=== PATIENT | male | born 1995 | race Caucasian/White ===

== ENCOUNTER → 2024-03-14 | Outpatient (CLI) | payer MEDICAID, SELFPAY ==
[2024-03-14 13:09] LABS: Absolute Lymphocyte Count 2.58 X10^3/uL (0.83-4.51); Absolute Neutrophil Count 7.8 X10^3/uL (2.0-7.7); Basophil# 0.04 X10^3/uL; Basophil% 0.4 % (0-1); Eosinophil# 0.07 X10^3/uL; Eosinophils% 0.6 % (0-5); Hematocrit 42.7 % (40-54); Hemoglobin 14.2 g/dL (13.0-16.5); Lymphocyte # 2.58 X10^3/ul (0.83-4.51); Lymphocyte % 23.3 % (19-41); Mean Corp Hgb Conc 33.3 g/dL (32-36); Mean Corpuscular Hgb 28.1 pg (27.0-32.0); Mean Corpuscular Volume 84.4 fL (80-94); Mean Platelet Vol. 10.3 fl (6.2-12.0); Monocyte# 0.47 X10^3/uL; Monocyte% 4.2 % (0-10); NRBC Flagged by Analyzer 0 % (0-5); Neutrophil # 7.81 X10^3/uL (2.7-7.7); Neutrophil % 70.4 % (47-70); Platelet Count 285 K/mm3 (150-450); RBC Distribution Width CV 13.1 % (11.6-14.6); Red Blood Count 5.06 M/mm3 (4.6-6.2); White Blood Count 11.1 K/mm3 (4.4-11.0)
[2024-03-14 13:14] LABS: Hemoglobin A1c 5.6 % (3.8-5.6)
[2024-03-14 13:23] LABS: ALB/GLOB Ratio 0.9 RATIO (0.9-2.4); AST(SGOT) 16 U/L (15-37); Alanine Aminotransfer ALT/SGPT 40 U/L (16-61); Albumin, Serum 3.6 g/dL (3.2-5.0); Alkaline Phosphatase 110 U/L (45-117); Anion Gap 6 (5-15); BUN 14 mg/dL (7-18); BUN/Creat Ratio 13.3 RATIO (10-20); Calcium,Total 8.9 mg/dL (8.5-10.1); Chloride 105 mmol/L (98-107); Cholesterol 211 mg/dL (200); Creatinine, Serum 1.05 mg/dL (0.70-1.30); EST Glomerular Filtration Rate 89 mL/min (>60); Est Glom Filt Rate - Afr Amer 108 mL/min (>60); Globulin 4.2 g/dL (2.2-4.2); Glucose 124 mg/dL (74-106); High Density Lipoprotein 38 mg/dL; Potassium 3.6 mmol/L (3.5-5.1); Protein, Total 7.8 g/dL (6.4-8.2); Sodium Level 138 mmol/L (136-145); Triglycerides 159 mg/dL; Very Low Density Lipoprotein 32 mg/dL (5-40)
== END | disposition home or self-care (01) ==
LOC: VSLAB 12:39
PROVIDERS: PCP Nurse Practitioner Family; Visit Provider Nurse Practitioner Family
DX: E66.9 Obesity, unspecified (principal)
CPT/HCPCS: 36415; 80053; 80061; 83036; 84443; 85025

== ENCOUNTER → 2024-11-07 | Outpatient (CLI) | payer MEDICAID, SELFPAY ==
[2024-11-07 16:47] LABS: Amphetamine Urine NEGATIVE (<1000 ng/mL); Barbiturate Urine NEGATIVE (< 200 ng/mL); Benzodiazepine Urine NEGATIVE (< 200 ng/mL); Buprenorphine Urine NEGATIVE (< 200 ng/mL); Cocaine Urine NEGATIVE (< 300 ng/mL); Fentanyl, Urine NEGATIVE; Methadone Urine NEGATIVE (< 300 ng/mL); Opiates Urine NEGATIVE (< 300 ng/mL); Oxycodone, Urine NEGATIVE (< 100 ng/mL); PCP Urine NEGATIVE (< 25 ng/mL); THC Urine NEGATIVE (< 50 ng/mL)
== END | disposition home or self-care (01) ==
LOC: VSLAB 14:33
PROVIDERS: PCP Nurse Practitioner Family
DX: Z02.89 Encounter for other administrative examinations (principal)
CPT/HCPCS: 80307

== ENCOUNTER 2024-12-08 05:38 | Emergency (ER) | payer MEDICAID, SELFPAY ==
[2024-12-08 05:41] VITALS: BP 156/122; PULSE 106; RESP 18; TEMP 35.9; O2SAT 97; BMI 62.6
--- NOTE | 2024-12-08 05:49 | CT_ITS ---
PROCEDURE: ABDOMEN/PELVIS W IV CONT ONLY 12/08/2024 REASON FOR EXAM: LEFT SIDE PAIN TECHNIQUE: ABDOMEN/PELVIS W IV CONT ONLY Coronal and Sagittal reconstruction series were provided. CONTRAST: Isovue 370 VOLUME: 97 mL One or more dose reduction techniques were used (e.g., Automated exposure control, adjustment of the mA and/or kV according to patient size, use of iterative reconstruction technique. RADIATION DOSE SUMMARY: CTDlvol: 35.53+ 34.45 mGy DLP: 1989.03 mGycm COMPARISON: None. FINDINGS: The peripheral soft tissues are unremarkable. The lung bases are clear. No acute osseous abnormalities. The abdominal aorta is normal in caliber. No suspicious lymphadenopathy. The liver, gallbladder, pancreas, spleen, adrenals are unremarkable. Symmetric enhancement of the bilateral kidneys. No hydroureteronephrosis. The urinary bladder is unremarkable. The prostate is unremarkable. Normal caliber large and small bowel. CT/Abdomen/Pelvis W IV Cont ONLY IMPRESSION: No acute abnormalities of the abdomen or pelvis. Reading Location: [id number]
--- NOTE | 2024-12-08 05:52 | ED.VIS.GI ---
HPI <Dr. José Hernandez DO - Last Filed: 12/09/24 15:16> HPI - GI History of Present Illness Chief Complaint: Diarrhea Informant: patient Narrative Narrative: Presents for recurrent diarrhea over the last 4 to 5 days. Started 3 weeks ago. It was proved however come back. He at least 10 episodes a day had 10 overnight. Nonbloody. Nausea without vomiting. Last couple days left abdominal cramping discomfort since 2 AM it has been persistent. No abdominal surgeries. No recent antibiotics. Had some chills. No urinary changes, no dysuria. He did go to [place], no swimming lakes or streams. Denies any raw foods. Denies cough. No allergies. Denies any family history of Crohn's or ulcerative colitis. Prior similar symptoms: No PFSH <Dr. José Hernandez DO - Last Filed: 12/09/24 15:16> PFSH Home Medications ?Medication ?Instructions ?Recorded ?Last Taken ?Type cholecalciferol (vitamin D3) 50 2,000 unit PO DAILY 12/08/24 Unknown History mcg (2,000 unit) capsule (Vitamin D3) ferrous sulfate 325 mg (65 mg 325 mg PO DAILY 12/08/24 Unknown History iron) tablet,delayed release folic acid 400 mcg tablet 0.4 mg PO DAILY 12/08/24 Unknown History hyoscyamine sulfate 0.125 mg 0.125 mg sublingual Q8H PRN 12/08/24 Unknown Rx sublingual tablet (Levsin/SL) abdominal discomfort #10 tabs loperamide 2 mg capsule 2 mg PO PRN PRN loose stool 12/08/24 Unknown History ondansetron 4 mg disintegrating 4 mg PO Q8H PRN PRN Nausea #10 tabs 12/08/24 Unknown Rx tablet testosterone cypionate 200 mg/mL 60 mg IM 12/08/24 Unknown History intramuscular oil trazodone 50 mg tablet 50 mg PO QHS PRN sleep 12/08/24 Unknown History Allergy/AdvReac Type Severity Reaction Status Date / Time No Known Allergies Allergy Verified 12/08/24 05:39 Surgical History (Updated 12/08/24 @ 06:05 by Fabiola Pearce) H/O removal of cyst Social History Smoking Status: Current some day smoker tobacco type: cigars ROS <Dr. José Hernandez, DO - Last Filed: 12/09/24 15:16> ROS ED Constitutional Constitutional ED: Reports chills; Denies fever(s) or sweats ENT ENT ED: Denies sore throat Cardiovascular Cardiovascular: Denies chest pain, leg edema, palpitations or racing heartbeat Respiratory/Chest Respiratory/Chest: Denies cough, dyspnea or dyspnea on exertion Gastrointestinal Gastrointestinal: Reports abdominal pain, diarrhea and nausea; Denies vomiting Genitourinary Genitourinary ED: Denies dysuria, hematuria or urinary frequency Musculoskeletal Musculoskeletal: Denies back pain, extremity pain or neck pain Integumentary Denies rash or wounds Neurologic Neurologic: Denies headache(s), paresthesias or weakness EXAM <Dr. José Hernandez, DO - Last Filed: 12/09/24 15:16> Physical Exam Const Vital Signs: 12/08/24 05:41 12/08/24 07:16 12/08/24 08:00 Temperature 96.7 F L 98.6 F 98.6 F Temperature Source Temporal Oral Oral Pulse Rate 106 H 108 H 95 Respiratory Rate 18 18 18 Blood Pressure 156/122 H 145/84 H 160/71 H Blood Pressure Mean 133 104 100 Pulse Ox 97 97 98 Oxygen Delivery Method Room Air Room Air Room Air Positive well nourished and well developed Constitutional Narrative: Nontoxic General Appearance ED: well developed and NAD HEENT HEENT Narrative: Mild dry mucosal membranes. normocephalic and atraumatic Eyes General Eye ED: Yes normal appearance of both eyes Neck full ROM Chest Wall Chest: Negative for tenderness Resp normal respiratory effort and normal air movement Effort and Inspection: symmetric chest movement; Negative for respiratory distress Cardio regular rhythm and no murmurs Rate: tachycardic Peripheral Pulses: pulses 2+ throughout GI normal to inspection, nondistended, normoactive bowel sounds GI Narrative: Mild tenderness left side upper abdomen. Negative Bradford's McBurney's tenderness. No guarding or rebound. Palpation: Negative for guarding or rebound tenderness present Extremity normal to inspection General Extremety ED: Negative for edema or tenderness General Extremity: Negative for edema Neuro oriented x3 and no sensory deficits noted Sensorium / Orientation: awake and alert Skin no rashes or lesions noted and no wounds <Dr. Eric Alfonso, DO - Last Filed: 12/08/24 08:50> Physical Exam Const Vital Signs: 12/08/24 05:41 12/08/24 07:16 12/08/24 08:00 Temperature 96.7 F L 98.6 F 98.6 F Temperature Source Temporal Oral Oral Pulse Rate 106 H 108 H 95 Respiratory Rate 18 18 18 Blood Pressure 156/122 H 145/84 H 160/71 H Blood Pressure Mean 133 104 100 Pulse Ox 97 97 98 Oxygen Delivery Method Room Air Room Air Room Air MDM <Dr. José Hernandez, DO - Last Filed: 12/09/24 15:16> MDM MDM Narrative Medical decision making narrative: Interventions / MDM: Differential diagnosis: Diarrhea, abdominal cramping, pancreatitis Diagnosis considered but do not suspect: N/A My EKG interpretation: N/A Imaging independently reviewed and interpreted by myself: CT abdomen pelvis IV contrast: External documents reviewed: N/A Test considered but not ordered:N/A ED course: Nontoxic. Slight tachycardia on arrival mild dry mucous membranes. IV established for abdominal labs. Will check an order for stool studies. CT abdomen pelvis due to left-sided abdominal pain. 0645: Labs white count 14. Normal creatinine 0.79 potassium 3.6. Lipase returned elevated at 260. Liver enzymes are normal. He denies any alcohol history. Clinically feeling better at this time. Pancreatitis likely causing his pain for the last couple days. Awaiting CT scan results. Awaiting stool collection. 0705: Stools were collected there is nonbloody. Discussed with patient may not get back right away. He has no C. difficile risk factors. Disposition be made after CT scan results. Re-evaluation: stable Disposition discussed with patient/family/significant other: Patient Case discussed with consulting clinician: N/A This note was generated with [employer] dictation software. It may contain incorrect words, spelling, and punctuation that were not noted in checking the note before signing. Lab Data Attestation: I reviewed the patient's lab results. Labs: Laboratory Results - last 24 hr 12/08/24 06:09 WBC 14.0 H RBC 4.86 Hgb 13.9 Hct 40.9 MCV 84.2 MCH 28.6 MCHC 34.0 RDW Std Deviation 38.3 RDW Coeff of Bebe 12.6 Plt Count 239 MPV 10.4 Immature Gran % (Auto) 0.400 Neut % (Auto) 80.1 H Lymph % (Auto) 11.4 L Hart % (Auto) 5.3 Eos % (Auto) 2.6 Baso % (Auto) 0.2 Absolute Neuts (auto) 11.2 H Absolute Lymphs (auto) 1.60 Nucleated RBC % 0 Sodium 136 Potassium 3.6 Chloride 106 Carbon Dioxide 17.4 L Anion Gap 13 BUN 9 Creatinine 0.79 Estim Creat Clear Calc 240.11 Est GFR (MDRD) Non-Af 123 BUN/Creatinine Ratio 11.0 Glucose 135 H Calcium 8.8 Total Bilirubin 0.41 AST 16 ALT 22 Alkaline Phosphatase 100 Total Protein 7.0 Albumin 3.7 Globulin 3.3 Albumin/Globulin Ratio 1.1 Lipase 260 H Radiography Diagnostic Testing: Clinical Impression(s) from Imaging Studies Abdomen/Pelvis CT 12/08/24 05:49 IMPRESSION: No acute abnormalities of the abdomen or pelvis. Reading Location: [id number] <Dr. Eric Alfonso, DO - Last Filed: 12/08/24 08:50> [facility] Lab Data Labs: Laboratory Results - last 24 hr 12/08/24 06:09 WBC 14.0 H RBC 4.86 Hgb 13.9 Hct 40.9 MCV 84.2 MCH 28.6 MCHC 34.0 RDW Std Deviation 38.3 RDW Coeff of Bebe 12.6 Plt Count 239 MPV 10.4 Immature Gran % (Auto) 0.400 Neut % (Auto) 80.1 H Lymph % (Auto) 11.4 L Hart % (Auto) 5.3 Eos % (Auto) 2.6 Baso % (Auto) 0.2 Absolute Neuts (auto) 11.2 H Absolute Lymphs (auto) 1.60 Nucleated RBC % 0 Sodium 136 Potassium 3.6 Chloride 106 Carbon Dioxide 17.4 L Anion Gap 13 BUN 9 Creatinine 0.79 Estim Creat Clear Calc 240.11 Est GFR (MDRD) Non-Af 123 BUN/Creatinine Ratio 11.0 Glucose 135 H Calcium 8.8 Total Bilirubin 0.41 AST 16 ALT 22 Alkaline Phosphatase 100 Total Protein 7.0 Albumin 3.7 Globulin 3.3 Albumin/Globulin Ratio 1.1 Lipase 260 H Radiography Diagnostic Testing: Clinical Impression(s) from Imaging Studies Abdomen/Pelvis CT 12/08/24 05:49 IMPRESSION: No acute abnormalities of the abdomen or pelvis. Reading Location: [facility] Treatment and Re-Evaluation :: Care of the patient was turned over to me pending CT scan results. CT scan of the abdomen pelvis was obtained. There is no acute abnormality. There is no free air or free fluid. There is no evidence of bowel obstruction or perforation. This was interpreted by the radiologist and was also independently reviewed by myself. Patient was advised of his findings. Patient instructed to start with a clear liquid diet and advance as tolerated. Patient was instructed to follow-up with his primary care physician in 5 to 7 days. Patient understood and is agreeable with plan. All questions were answered. Discharge Plan Triage Chief Complaint: Diarrhea Other Complaint: Abd Pain ED Provider: José Hernandez Dx/Rx/DC Orders Clinical Impression: Acute pancreatitis, Diarrhea, Abdominal cramping Instructions: ED Diarrhea, Unknown Cause, ED Pancreatitis Prescriptions: New hyoscyamine sulfate [Levsin/SL] 0.125 mg tablet, sublingual 0.125 mg sublingual Q8H PRN (Reason: abdominal discomfort) Qty: 10 0RF ondansetron 4 mg tablet,disintegrating 4 mg PO Q8H PRN PRN (Reason: Nausea) Qty: 10 0RF No Action cholecalciferol (vitamin D3) [Vitamin D3] 50 mcg (2,000 unit) capsule 2,000 unit PO DAILY loperamide 2 mg capsule 2 mg PO PRN PRN (Reason: loose stool) folic acid 400 mcg tablet 0.4 mg PO DAILY ferrous sulfate 325 mg (65 mg iron) tablet,delayed release (DR/EC) 325 mg PO DAILY trazodone 50 mg tablet 50 mg PO QHS PRN (Reason: sleep) testosterone cypionate 200 mg/mL oil 60 mg IM Primary Care Provider: Jai Fischer Referrals: Nusrat Odell Stevie, [employer] [[facility]] - Activity Restrictions/Additional Instructions: You had pancreatitis with lipase was 260 normal liver enzymes. Clear liquid diet next 24 hours advance as tolerated. Light meals. Loose stools are in the lab, this is pending. You will be contacted if any findings that require treatment. Take medications as prescribed. Follow-up with your doctor. If your symptoms worsen not controlled medications, return to the ED for reevaluation. Print Language: Niuean Disposition Disposition: Home, Self Care Discharge Date/Time: 12/08/24 09:00
--- OUTSIDE RECORDS SUMMARY | 2024-12-08 06:03 | XMS RPT_ITS | CCD ---
Author Organization [facility] Care Team Providers Care Wearing Apparel Assembler Name Role Phone MADELAINE JAUREGUI DO Attending Unavailable MADELAINE JAUREGUI DO Primary Care Unavailable Jose R INSURANCE AGENCY SALES MANAGER-CNusrat Primary Care Provider [phone] Amado INSURANCE AGENCY SALES MANAGER-CJai Attending Provider Jai Miller Attending Unavailable Nusrat Sumner Primary Care UnavailNusrat Boothe Attending Nusrat Argueta Primary Care Unavailabl e Medications Current Medications Medication Drug Class(es) Dates Sig (Normalized) Sig (Original) amoxicillin 875 mg oral tablet (1 source) Penicillin-class Antibacterial Start: 04-19-2016 take 1 tablet by mouth twice daily Amoxicillin 875 MG tablet Active 875 mg PO TWICE A DAY April 19, 2016 1:00am Problems Problem Classification Problem Date Documented Date Episodic/Chronic Administrative/social admission (1 source) Encounter for other administrative examinations; Translations: [Encounter for other administrative examinations] Onset: 11-11-2024 Episodic Other nutritional; endocrine; and metabolic disorders (1 source) Obesity, unspecified; Translations: [Obesity, unspecified] Onset: 04-05-2024 Chronic Results Test Name Value Interpretation Reference Range Facility Amphetamine detection with 1 000 ng/mL as cutoffOrdered By: aJi Fischer on 11-07-2024 Amphetamines Screen method >1000 ng/mL Ql (U) Negative < 200 ng/mL [facility] No Panel InformationOrdered By: Jai Fischer on 11-07-2024 Urine Buprenorphine Qualitative Negative < 200 ng/mL [facility] Urine Oxycodone Screen Negative < 100 ng/mL [facility] Quantitative urine opiates m easurementOrdered By: Jai Fischer on 11-07-2024 Opiates Ql (U) Negative < 300 ng/mL [facility] Screening urine fentanyl lashae surementOrdered By: Jai Fischer on 11-07-2024 fentaNYL Screen Ql (U) Negative [facility] Urine Drug Screen (VISTA)on 11-07-2024 AMPHETAMINES Negative Normal <1000 ng/mL [facility] Comment on above: Order Comment: UNK Performed By: #### L 505.5000 #### [facility] [address] [facility] [address] BARBITIURATES Negative Normal < 200 ng/mL [facility] Comment on above: Order Comment: UNK Performed By: #### L 505.5000 #### [facility] [address] [place] [address] BENZODIAZIPINE Negative Normal < 200 ng/mL [facility] Comment on above: Order Comment: UNK Performed By: #### L 505.5000 #### [facility] [address] [place] [address] BUP Ur Drug Scr Negative Normal < 200 ng/mL [facility] Comment on above: Order Comment: UNK Performed By: #### L 505.5000 #### [facility] [address] [place] [address] COCAINE Negative Normal < 300 ng/mL [facility] Comment on above: Order Comment: UNK Performed By: #### L 505.5000 #### [facility] [address] [place] [address] Fentanyl Negative Normal [facility] Comment on above: Order Comment: UNK Performed By: #### L 505.5000 #### [facility] [address] [place] [address] METHADONE Negative Normal < 300 ng/mL [facility] Comment on above: Order Comment: UNK Performed By: #### L 505.5000 #### [facility] [address] [facility] [address] OPIATES Negative Normal < 300 ng/mL [facility] Comment on above: Order Comment: UNK Performed By: #### L 505.5000 #### [facility] [address] [place], [place], [id number] OXYCODONE Negative Normal < 100 ng/mL [facility] Comment on above: Order Comment: UNK Performed By: #### L 505.5000 #### [facility] [address] [place] [address] PCP Negative Normal < 25 ng/mL [facility] Comment on above: Order Comment: UNK Performed By: #### L 505.5000 #### [facility] [address] [place] [address] THC Negative Normal < 50 ng/mL [facility] Comment on above: Order Comment: UNK Performed By: #### L 505.5000 #### [facility] [address] [place], [place], [facility] Urine benzodiazepine levelOr dered By: Zebulun Beam on 11-07-2024 Benzodiazepines Ql (U) Negative < 200 ng/mL [facility] Urine cocaine levelOrdered B y: Zebulun Beam on 11-07-2024 Cocaine Ql (U) Negative < 300 ng/mL [facility] Urine fsikv-2-zavwkyxymlkzxy abinol (THC) measurementOrdered By: Zebulun Beam on 11-07-2024 Cannabinoids Screen Ql (U) Negative < 50 ng/mL [facility] Urine phencyclidine (PCP) de tectionOrdered By: Zebulun Beam on 11-07-2024 Phencyclidine Ql (U) Negative < 25 ng/mL [facility] CBC W/Diff, Automatedon 10-3 Absolute Lymph 2.58 X10 3/uL Normal 0.83-4.51 [facility] Comment on above: Performed By: #### L 500.4100, L501.9985, L500.4050, L501.9520, L100.0100 #### [facility] [address] [place], [address] Absolute Neut 7.8 X10 3/uL High 2.0-7.7 [facility] Comment on above: Performed By: #### L 500.4100, [id number], L500.4050, L501.9520, L100.0100 #### [facility] [address] [place], [address] Basophils/100 WBC (Bld) 0.4 % Normal 0-1 [facility] Comment on above: Performed By: #### L 500.4100, [id number], L500.4050, [id number], L100.0100 #### [facility] [address] [place], [address] Eosinophils/100 WBC (Bld) 0.6 % Normal 0-5 [facility] Comment on above: Performed By: #### L 500.4100, [id number], L500.4050, L501.9520, L100.0100 #### [facility] [address] [place], [address] Erythrocyte distribution width (RBC) [Ratio] 13.1 % Normal 11.6-14.6 [facility] Comment on above: Performed By: #### L 500.4100, [id number], L500.4050, L501.9520, L100.0100 #### [facility] [address] [place], [address] Hematocrit (Bld) [Volume fraction] 42.7 % Normal 40-54 [facility] Comment on above: Performed By: #### L 500.4100, [id number], L500.4050, L501.9520, L100.0100 #### [facility] [address] [place], [address] Hemoglobin (Bld) [Mass/Vol] 14.2 g/dL Normal 13.0-16.5 [facility] Comment on above: Performed By: #### L 500.4100, [id number], L500.4050, L501.9520, L100.0100 #### [facility] [address] [place], [address] IG% 1.100 High 0.0-0.9 [facility] Comment on above: Result Comment: IG% - Immature Granulocytes (promyelocytes, myelocytes and metamyelocytes) > 1% indicates that a LEFT SHIFT is Present. Performed By: #### L 500.4100, L501.9985, L500.4050, L501.9520, L100.0100 #### [facility] [address] [place], [address] Lymphocytes/100 WBC (Bld) 23.3 % Normal 19-41 [facility] Comment on above: Performed By: #### L 500.4100, [id number], L500.4050, L501.9520, L100.0100 #### [facility] [address] [place], [address] MCH (RBC) [Entitic mass] 28.1 pg Normal 27.0-32.0 [facility] Comment on above: Performed By: #### L 500.4100, [id number], L500.4050, L501.9520, L100.0100 #### [facility] [address] [place], [address] MCHC (RBC) [Mass/Vol] 33.3 g/dL Normal 32-36 [facility] Comment on above: Performed By: #### L 500.4100, [id number], L500.4050, L501.9520, L100.0100 #### [facility] [address] [place], [address] MCV (RBC) [Entitic vol] 84.4 fL Normal 80-94 [facility] Comment on above: Performed By: #### L 500.4100, [id number], L500.4050, L501.9520, L100.0100 #### [facility] [address] [place], [address] Monocytes/100 WBC (Bld) 4.2 % Normal 0-10 [facility] Comment on above: Performed By: #### L 500.4100, [id number], L500.4050, L501.9520, L100.0100 #### [facility] [address] [place], [address] Neutrophils/100 WBC (Bld) 70.4 % High 47-70 [facility] Comment on above: Performed By: #### L 500.4100, [id number], L500.4050, L501.9520, L100.0100 #### [facility] [address] [place], [address] Nucleated RBC (Bld) [#/Vol] 0 10*3/uL Normal 0-5 [facility] Comment on above: Performed By: #### L 500.4100, [id number], L500.4050, L501.9520, L100.0100 #### [facility] [address] [place], [address] Platelet mean volume (Bld) [Entitic vol] 10.3 fL Normal 6.2-12.0 [facility] Comment on above: Performed By: #### L 500.4100, [id number], L500.4050, L501.9520, L100.0100 #### [facility] [address] [place], [address] Platelets (Bld) [#/Vol] 285 10*3/uL Normal 150-450 [facility] Comment on above: Performed By: #### L 500.4100, [id number], L500.4050, L501.9520, L100.0100 #### [facility] [address] [place], [address] RBC (Bld) [#/Vol] 5.06 10*6/uL Normal 4.6-6.2 [facility] Comment on above: Performed By: #### L 500.4100, [id number], L500.4050, L501.9520, L100.0100 #### [facility] [address] [place], [address] RDW SD 40.0 fl Normal 35.1-43.9 [facility] Comment on above: Performed By: #### L 500.4100, [id number], L500.4050, L501.9520, L100.0100 #### [facility] [address] [place], [address] WBC (Bld) [#/Vol] 11.1 10*3/uL High 4.4-11.0 [facility] Comment on above: Performed By: #### L 500.4100, [id number], L500.4050, L501.9520, L100.0100 #### [facility] [address] [place], [address] Comprehensive Metabolic [facility] 03-14-2024 Albumin [Mass/Vol] 3.6 g/dL Normal 3.2-5.0 [facility] Comment on above: Performed By: #### L 500.4100, [id number], L500.4050, L501.9520, L100.0100 #### [facility] [address] [place], [address] Albumin/Globulin [Mass ratio] 0.9 {ratio} Normal 0.9-2.4 [facility] Comment on above: Performed By: #### L 500.4100, [id number], L500.4050, L501.9520, L100.0100 #### [facility] [address] [place], [address] ALK P 110 U/L Normal 45-117 [facility] Comment on above: Performed By: #### L 500.4100, [id number], L500.4050, L501.9520, L100.0100 #### [facility] [address] [place], [address] ALT [Catalytic activity/Vol] 40 U/L Normal 16-61 [facility] Comment on above: Performed By: #### L 500.4100, [id number], L500.4050, L501.9520, L100.0100 #### [facility] [address] [place], [address] AST [Catalytic activity/Vol] 16 U/L Normal 15-37 [facility] Comment on above: Performed By: #### L 500.4100, [id number], L500.4050, L501.9520, L100.0100 #### [facility] [address] [place], [address] Bilirubin [Mass/Vol] 0.50 mg/dL Normal 0.20-1.00 [facility] Comment on above: Result Comment: For patients on eltrombopag therapy, use of Dimension [place] TBIL is not recommended. Performed By: #### L 500.4100, [id number], L500.4050, L501.9520, L100.0100 #### [facility] [address] [place], [address] BUN/CRE 13.3 RATIO Normal 10-20 [facility] Comment on above: Performed By: #### L 500.4100, [id number], L500.4050, L501.9520, L100.0100 #### [facility] [address] [place], [address] CA,Total 8.9 mg/dL Normal 8.5-10.1 [facility] Comment on above: Performed By: #### L 500.4100, [id number], L500.4050, L501.9520, L100.0100 #### [facility] [address] [place], [address] Chloride [Moles/Vol] 105 mmol/L Normal 98-107 [facility] Comment on above: Performed By: #### L 500.4100, [id number], L500.4050, L501.9520, L100.0100 #### [facility] [address] [place], [address] CO2 [Moles/Vol] 27.0 mmol/L Normal 21.0-32.0 [facility] Comment on above: Performed By: #### L 500.4100, [id number], L500.4050, L501.9520, L100.0100 #### [facility] [address] [place], [address] Creatinine [Mass/Vol] 1.05 mg/dL Normal 0.70-1.30 [facility] Comment on above: Result Comment: The validity of the calculated GFR GFRAA in patients over 70 years has not been determined. Clinical correlation is essential. Performed By: #### L 500.4100, [id number], L500.4050, L501.9520, L100.0100 #### [facility] [address] [place], [address] EST GFR - AA 108 mL/min Normal >60 [facility] Comment on above: Result Comment: Afri can [place] GFR Calc Performed By: #### L 500.4100, [id number], L500.4050, L501.9520, L100.0100 #### [facility] [address] [place], [address] GAP 6 Normal 5-15 [facility] Comment on above: Performed By: #### L 500.4100, [id number], L500.4050, L501.9520, L100.0100 #### [facility] [address] [place], [address] GFR/1.73 sq M.predicted among non-blacks MDRD (S/P/Bld) [Vol rate/Area] 89 mL/min/{1.73_m2} Normal >60 [facility] Comment on above: Result Comment: Non- GFR Calc Performed By: #### L 500.4100, [id number], L500.4050, L501.9520, L100.0100 #### [facility] [address] [place], [address] Globulin (S) [Mass/Vol] 4.2 g/dL Normal 2.2-4.2 [facility] Comment on above: Performed By: #### L 500.4100, [id number], L500.4050, L501.9520, L100.0100 #### [facility] [address] [place], [address] Glucose [Mass/Vol] 124 mg/dL High 74-106 [facility] Comment on above: Result Comment: Fast ing Glucose result from 100 to 125 mg/dL suggests IMPAIRED HOMEOSTASIS per A.D.A. criteria. Performed By: #### L 500.4100, [id number], L500.4050, L501.9520, L100.0100 #### [facility] [address] [place], [address] Potassium [Moles/Vol] 3.6 mmol/L Normal 3.5-5.1 [facility] Comment on above: Performed By: #### L 500.4100, [id number], L500.4050, L501.9520, L100.0100 #### [facility] [address] [place], [address] Sodium [Moles/Vol] 138 mmol/L Normal 136-145 [facility] Comment on above: Performed By: #### L 500.4100, [id number], L500.4050, L501.9520, L100.0100 #### [facility] [address] [place], [address] T PROT 7.8 g/dL Normal 6.4-8.2 [facility] Comment on above: Performed By: #### L 500.4100, [id number], L500.4050, L501.9520, L100.0100 #### [facility] [address] [place], [address] Urea nitrogen [Mass/Vol] 14 mg/dL Normal 7-18 [facility] Comment on above: Performed By: #### L 500.4100, [id number], L500.4050, L501.9520, L100.0100 #### [facility] [address] [place], [address] Hemoglobin A1con 03-14-2024 HbA1c (Bld) [Mass fraction] 5.6 % Normal 3.8-5.6 [facility] Comment on above: Result Comment: Norm al < 5.7 % Prediabetic 5.7 - 6.4 % Diabetic >or= 6.5 % Please note range changes. Performed By: #### L 500.4100, L501.9985, L500.4050, L501.9520, L100.0100 #### [facility] [address] [place], [address] Lipid Profileon 03-14-2024 Cholesterol [Mass/Vol] 211 mg/dL High 200 [facility] Comment on above: Result Comment: <200 mg/dL Desirable 200-240 mg/dL Borderline >240 mg/dL High Risk Performed By: #### L 500.4100, L501.9985, L500.4050, L501.9520, L100.0100 #### [facility] [address] [place], [address] Cholesterol in HDL [Mass/Vol] 38 mg/dL Low [facility] Comment on above: Result Comment: The drugs N-Acetylcysteine and Metamizole may falsely depress this assay. Reference Range HDL <40 mg/dL Low HDL Cholesterol HDL >or= 60 mg/dL High HDL Cholesterol Performed By: #### L 500.4100, L501.9985, L500.4050, L501.9520, L100.0100 #### [facility] [address] [place], [address] Cholesterol in LDL [Mass/Vol] 141 mg/dL High 0-130 [facility] Comment on above: Performed By: #### L 500.4100, L501.9985, L500.4050, L501.9520, L100.0100 #### [facility] [address] [place], [address] Cholesterol in VLDL [Mass/Vol] 32 mg/dL Normal 5-40 [facility] Comment on above: Performed By: #### L 500.4100, L501.9985, L500.4050, L501.9520, L100.0100 #### [facility] [address] [place], [address] Triglyceride [Mass/Vol] 159 mg/dL Normal [facility] Comment on above: Result Comment: The drugs N-Acetylcysteine and Metamizole may falsely depress this assay. Serum Triglycerides Reference Interval Normal <150 mg/dL Borderline high 150 - 199 mg/dL High 200 - 499 mg/dL Very High > or = 500 mg/dL Performed By: #### L 500.4100, L501.9985, L500.4050, L501.9520, L100.0100 #### [facility] [address] [place], [address] Thyroid Stim Hormone (TSH)on 03-14-2024 TSH 2.890 uIU/mL Normal 0.358-3.740 [facility] Comment on above: Performed By: #### L 500.4100, L501.9985, L500.4050, L501.9520, L100.0100 #### [facility] [address] [place], [address] .Auto Diffon 10-24-2023 Basophil, Absolute 0.1 10 3/mcL Normal 0.0-0.2 [facility] ([place]) Comment on above: Performed By: #### C MP, LIPID, A1C, VIDH, ANEU, GFR, ADIFF, CBC #### [address] [address] Basophils/100 WBC (Bld) 0.6 % Normal 0.0-2.5 [facility] ([place]) Comment on above: Performed By: #### C MP, LIPID, A1C, VIDH, ANEU, GFR, ADIFF, CBC #### [address] [address] Eosinophil, Absolute 0.1 10 3/mcL Normal 0.0-0.4 [facility] ([place] Comment on above: Performed By: #### C MP, LIPID, A1C, VIDH, ANEU, GFR, ADIFF, CBC #### [address] [address] Eosinophils/100 WBC (Bld) 1.1 % Normal 0.0-7.0 [facility] ([place]) Comment on above: Performed By: #### C MP, LIPID, A1C, VIDH, ANEU, GFR, ADIFF, CBC #### [address] [address] Lymphocyte, Absolute 2.2 10 3/mcL Normal 0.8-3.9 [facility] Comment on above: Performed By: #### C MP, LIPID, A1C, VIDH, ANEU, GFR, ADIFF, CBC #### [address] [address] Lymphocytes/100 WBC (Bld) 19.5 % Normal 10.0-50.0 [facility] ([place]) Comment on above: Performed By: #### C MP, LIPID, A1C, VIDH, ANEU, GFR, ADIFF, CBC #### [address] [address] Monocyte, Absolute 0.7 10 3/mcL Normal 0.2-1.0 [facility] ([place]) Comment on above: Performed By: #### C MP, LIPID, A1C, VIDH, ANEU, GFR, ADIFF, CBC #### [address] [address] Monocytes/100 WBC (Bld) 6.3 % Normal 1.7-13.0 [facility] ([place]) Comment on above: Performed By: #### C MP, LIPID, A1C, VIDH, ANEU, GFR, ADIFF, CBC #### [address] [address] Neutrophils/100 WBC (Bld) 72.5 % Normal 37.0-80.0 [facility] ([place]) Comment on above: Performed By: #### C MP, LIPID, A1C, VIDH, ANEU, GFR, ADIFF, CBC #### [address] [address] .GFRon 10-24-2023 GFR 124 ml/min/1.73sqm Normal [facility] ([place]) Comment on above: Result Comment: GFR Population mean for , Non- Americans Ages 20-29 = 116 mL/min/1.73 sq.m. Ages 30-39 = 107 mL/min/1.73 sq.m. Ages 40-49 = 99 mL/min/1.73 sq.m. Ages 50-59 = 93 mL/min/1.73 sq.m. Ages 60-69 = 85 mL/min/1.73 sq.m. Ages 70+ = 75 mL/min/1.73 sq.m. Chronic Kidney Disease: Less than 60 mL/min/1.73 square meters End Stage Renal Disease: Less than 15 mL/min/1.73 square meters Performed By: #### C MP, LIPID, A1C, VIDH, ANEU, GFR, ADIFF, CBC #### [address] [address] GFR Non- 103 ml/min/1.73sqm Normal [facility] ([place]) Comment on above: Result Comment: GFR Population mean for , Non- Americans Ages 20-29 = 116 mL/min/1.73 sq.m. Ages 30-39 = 107 mL/min/1.73 sq.m. Ages 40-49 = 99 mL/min/1.73 sq.m. Ages 50-59 = 93 mL/min/1.73 sq.m. Ages 60-69 = 85 mL/min/1.73 sq.m. Ages 70+ = 75 mL/min/1.73 sq.m. Chronic Kidney Disease: Less than 60 mL/min/1.73 square meters End Stage Renal Disease: Less than 15 mL/min/1.73 square meters Performed By: #### C MP, LIPID, A1C, VIDH, ANEU, GFR, ADIFF, CBC #### [address] [address] .NEUABSon 10-24-2023 Neutrophil, Absolute 8.3 10 3/mcL High 2.9-6.2 [facility] ([place] Comment on above: Performed By: #### C MP, LIPID, A1C, VIDH, ANEU, GFR, ADIFF, CBC #### [address] [address] A1Con 10-24-2023 HbA1c (Bld) [Mass fraction] 5.2 % Normal 4.3-6.4 [facility] ([place]) Comment on above: Performed By: #### C MP, LIPID, A1C, VIDH, ANEU, GFR, ADIFF, CBC #### [address] [address] CBCon 10-24-2023 Erythrocyte distribution width (RBC) [Ratio] 14.0 % Normal 11.5-14.5 [facility] ([place]) Comment on above: Performed By: #### C MP, LIPID, A1C, VIDH, ANEU, GFR, ADIFF, CBC #### [address] [address] Hematocrit (Bld) [Volume fraction] 41.2 % Low 42.0-52.0 [facility] ([place]) Comment on above: Performed By: #### C MP, LIPID, A1C, VIDH, ANEU, GFR, ADIFF, CBC #### [place] [id number] Hgb 13.8 G/dL Low 14.0-18.0 [facility] ([place]) Comment on above: Performed By: #### C MP, LIPID, A1C, VIDH, ANEU, GFR, ADIFF, CBC #### [place] [id number] MCH (RBC) [Entitic mass] 28.4 pg Normal 27.0-31.2 [facility] ([place]) Comment on above: Performed By: #### C MP, LIPID, A1C, VIDH, ANEU, GFR, ADIFF, CBC #### [place] [address] MCHC 33.6 G/dL Normal 31.8-35.4 [facility] ([place]) Comment on above: Performed By: #### C MP, LIPID, A1C, VIDH, ANEU, GFR, ADIFF, CBC #### [address] [address] MCV (RBC) [Entitic vol] 84.6 fL Normal 80.0-94.0 [facility] ([place]) Comment on above: Performed By: #### C MP, LIPID, A1C, VIDH, ANEU, GFR, ADIFF, CBC #### [place] [id number] Platelet 240 10 3/mcL Normal 130-400 [facility] ([place]) Comment on above: Performed By: #### C MP, LIPID, A1C, VIDH, ANEU, GFR, ADIFF, CBC #### [place] [id number] Platelet mean volume (Bld) [Entitic vol] 8.7 fL Normal 7.4-10.4 [facility] ([place]) Comment on above: Performed By: #### C MP, LIPID, A1C, VIDH, ANEU, GFR, ADIFF, CBC #### [address] [address] RBC 4.87 10 6/mcL Normal 4.04-6.13 [facility] ([place]) Comment on above: Performed By: #### C MP, LIPID, A1C, VIDH, ANEU, GFR, ADIFF, CBC #### [address] [address] WBC 11.4 10 3/mcL High 4.6-10.8 [facility] ([place]) Comment on above: Performed By: #### C MP, LIPID, A1C, VIDH, ANEU, GFR, ADIFF, CBC #### [address] [address] CMPon 10-24-2023 Albumin Level 3.6 G/dL Normal 3.5-5.0 [facility] ([place]) Comment on above: Performed By: #### C MP, LIPID, A1C, VIDH, ANEU, GFR, ADIFF, CBC #### [address] [address] Albumin/Globulin [Mass ratio] 1.0 {ratio} Low 1.1-2.5 [facility] ([place]) Comment on above: Performed By: #### C MP, LIPID, A1C, VIDH, ANEU, GFR, ADIFF, CBC #### [address] [address] ALP [Catalytic activity/Vol] 99 U/L Normal 40-135 [facility] ([place]) Comment on above: Performed By: #### C MP, LIPID, A1C, VIDH, ANEU, GFR, ADIFF, CBC #### [address] [address] ALT [Catalytic activity/Vol] 33 U/L Normal 16-63 [facility] ([place]) Comment on above: Performed By: #### C MP, LIPID, A1C, VIDH, ANEU, GFR, ADIFF, CBC #### [address] [address] AST [Catalytic activity/Vol] 12 U/L Normal 10-40 [facility] ([place]) Comment on above: Performed By: #### C MP, LIPID, A1C, VIDH, ANEU, GFR, ADIFF, CBC #### [address] [address] Bili Total 0.6 mg/dL Normal 0.2-1.0 [facility] ([place]) Comment on above: Result Comment: Use of this assay is not recommended for patients undergoing treatment with eltrombopag due to the potential for falsely elevated results. Performed By: #### C MP, LIPID, A1C, VIDH, ANEU, GFR, ADIFF, CBC #### [address] [address] BUN/Creatinine Ratio 16 ratio Normal 7-27 [facility] ([place]) Comment on above: Performed By: #### C MP, LIPID, A1C, VIDH, ANEU, GFR, ADIFF, CBC #### [address] [address] Calcium [Mass/Vol] 8.9 mg/dL Normal 8.4-10.2 [facility] ([place]) Comment on above: Performed By: #### C MP, LIPID, A1C, VIDH, ANEU, GFR, ADIFF, CBC #### [address] [address] Chloride [Moles/Vol] 105 mmol/L Normal 98-107 [facility] ([place] Comment on above: Performed By: #### C MP, LIPID, A1C, VIDH, ANEU, GFR, ADIFF, CBC #### [address] [address] CO2 [Moles/Vol] 28 mmol/L Normal 22-29 [facility] ([place]) Comment on above: Performed By: #### C MP, LIPID, A1C, VIDH, ANEU, GFR, ADIFF, CBC #### [address] [address] Creatinine [Mass/Vol] 0.89 mg/dL Normal 0.70-1.30 [facility] ([place]) Comment on above: Performed By: #### C MP, LIPID, A1C, VIDH, ANEU, GFR, ADIFF, CBC #### [address] [address] Electrolyte Balance 8.0 mEq/L Normal 4.0-15.0 Replaced by [facility] ([place]) Comment on above: Performed By: #### C MP, LIPID, A1C, VIDH, ANEU, GFR, ADIFF, CBC #### [address] [address] Globulin 3.6 G/dL Normal [facility] ([place]) Comment on above: Performed By: #### C MP, LIPID, A1C, VIDH, ANEU, GFR, ADIFF, CBC #### [address] [address] Glucose [Mass/Vol] 97 mg/dL Normal 70-105 [facility] ([place]) Comment on above: Performed By: #### C MP, LIPID, A1C, VIDH, ANEU, GFR, ADIFF, CBC #### [address] [address] Potassium [Moles/Vol] 4.4 mmol/L Normal 3.5-5.1 [facility] ([place] Comment on above: Performed By: #### C MP, LIPID, A1C, VIDH, ANEU, GFR, ADIFF, CBC #### [address] [address] Sodium [Moles/Vol] 141 mmol/L Normal 136-145 [facility] ([place]) Comment on above: Performed By: #### C MP, LIPID, A1C, VIDH, ANEU, GFR, ADIFF, CBC #### [address] [address] Total Protein 7.2 G/dL Normal 6.4-8.2 [facility] ([place]) Comment on above: Performed By: #### C MP, LIPID, A1C, VIDH, ANEU, GFR, ADIFF, CBC #### [address] [address] Urea nitrogen [Mass/Vol] 14 mg/dL Normal 7-18 [facility] ([place]) Comment on above: Performed By: #### C MP, LIPID, A1C, VIDH, ANEU, GFR, ADIFF, CBC #### [address] [address] LIPIDon 10-24-2023 Cholesterol [Mass/Vol] 195 mg/dL Normal 0-200 [facility] ([place] Comment on above: Result Comment: Chol esterol Reference Interval: Less than 200 Desirable 200-239 Borderline high risk 240 and above High risk Performed By: #### C MP, LIPID, A1C, VIDH, ANEU, GFR, ADIFF, CBC #### [address] [address] Cholesterol in HDL [Mass/Vol] 34 mg/dL Low 40-60 [facility] ([place]) Comment on above: Performed By: #### C MP, LIPID, A1C, VIDH, ANEU, GFR, ADIFF, CBC #### [address] [address] Cholesterol in LDL [Mass/Vol] 142 mg/dL High 0-130 [facility] ([place]) Comment on above: Performed By: #### C MP, LIPID, A1C, VIDH, ANEU, GFR, ADIFF, CBC #### [address] [address] Triglyceride [Mass/Vol] 95 mg/dL Normal 0-150 [facility] ([place]) Comment on above: Result Comment: Trig lyceride Reference Interval: Less than 150 Normal 150-199 Borderline high risk 200-499 High risk 500 or higher Very high risk Performed By: #### C MP, LIPID, A1C, VIDH, ANEU, GFR, ADIFF, CBC #### [address] [address] TSHRon 10-24-2023 TSH Qn 1.78 m[IU]/L Normal 0.36-3.74 [facility] ([place]) Comment on above: Performed By: #### T [facility] #### Ihsan [address] [address] VIDHon 10-24-2023 Vit. D 25-Hydroxy 18.2 ng/mL Normal [facility] ([place]) Comment on above: Result Comment: Inte rpretive Values Based on Total 25(OH) Vitamin D: Deficient <20 ng/mL Insufficient 20 - <30 ng/mL Sufficient 30-100 ng/mL Performed By: #### C MP, LIPID, A1C, VIDH, ANEU, GFR, ADIFF, CBC #### [place] [id number] [place], [place] [address] Encounters Encounter Date Encounter Type Care Provider Facility Start: 11-07-2024 End: 11-07-2024 ambulatory Nusrat Odell [employer] Work Phone: -Laboratory [facility] Start: 11-07-2024 End: 11-07-2024 Patient encounter procedure Jai Fischer [employer] SALES [employer]NAGER-C -[facility] Start: 11-07-2024 End: 11-07-2024 ambulatory Jai Fischer VSC Facility:[facility] Start: 03-14-2024 End: 03-14-2024 ambulatory Nusrat CALDERA Facility:[facility] Start: 10-24-2023 End: 10-24-2023 ambulatory MADELAINE JAUREGUI DO Facility:B Procedures Date Procedure Procedure Detail Performing Clinician Start: 11-07-2024 Methadone measuremary t, urine Nusrat Odell [employer]GER[employer] Work Phone: Payers Date Payer Category Payer Self-pay 2023 Unknown [id number] 1995 Unknown [id number] Unknown [id number] Unknown [id number] Unknown [id number] Social History Date Type Detail Facility Start: 04-19-2016 Tobacco smoking stat us NHIS Never smoked tobacco (finding) [facility] Start: 1995 Sex Assigned At Male W [facility] Evaluation note Note Date & Type Note Facility Evaluation note No assessment information availa ble [facility] Work Phone: Reason for referral (narrative) Note Date & Type Note Facility Reason for referral (narrative) No reason for referral information available [facility] Work Phone: Summary Purpose Family History No Family History Records FoundNo Family History Records Found Advance Directives No Advanced Directives Records FoundNo Advanced Directives Records Found Additional Source Comments (unrecognized sect ion and content) No Status Records FoundNo Status Records Found INFORMATION SOURCE (unrecogn ized section and content) DATE CREATED AUTHOR 11/08/2023 [facility] ([place]) DATE CREATED AUTHOR AUTHOR'S TATA ATESTELLE 2024 [facility] Care Teams (unrecognized sec tion and content) Team Status: Active Member Role/Relationship Status Dates No Primary Care Physician Family Provider Active Nusrat CALDERA, INS[employer]ANCE [employer] SALES MANAGER[employer]C Primary Care Provider Activ e Team Status: Inactive Member Role/Relationship Status Dates Nusrat CALDERA, INSURANCE [employer] SALES MANAGER[employer]C Primary Care Provider Activ e Start: November 07, 2024 End: November 07, 2024 Jai CALDERA, INSURANCE AG[employer] SALES MANAGER-C Attending Provider Active Start: November 07, 2024 End: November 07, 2024 Goals (unrecognized section and content) Goals may be documented in a n alternate section FOR RECORDS PERTAINING TO PATIENTS WHO ARE OR HAVE BEEN ENROLLED IN A CHEMICAL DEPENDENCY/SUBSTANCEABUSE PROGRAM, SOME INFORMATION MAY BE OMITTED. This clinical summary was aggregated from multiple sources. Caution should be exercised in using it in the provision of clinical care. This summary normalizes information from multiple sources, and as a consequence, information in this document may materially change the coding, format and clinical context of patient data. In addition, data may be omitted in some cases. CLINICAL DECISIONS SHOULD BE BASED ON THE PRIMARY CLINICAL RECORDS. [employer] provides no warranty or guarantee of the accuracy or completeness of information in this document.
[2024-12-08] MEDS: 0.9% Normal Saline (1000mL) 1,000 ML 999 ML IV (06:09)
[2024-12-08 06:15] LABS: Hematocrit 40.9 % (40-54); Hemoglobin 13.9 g/dL (13.0-16.5); Immature Granulocytes Count 0.060 X10^3/uL (0.0-0.0); Mean Corp Hgb Conc 34.0 g/dL (32-36); Mean Corpuscular Volume 84.2 fL (80-94); Mean Platelet Vol. 10.4 fl (6.2-12.0); NRBC Flagged by Analyzer 0 % (0-5); Platelet Count 239 K/mm3 (150-450); RBC Distribution Width CV 12.6 % (11.6-14.6); RBC Distribution Width SD 38.3 fl (35.1-43.9); Red Blood Count 4.86 M/mm3 (4.6-6.2); White Blood Count 14.0 K/mm3 (4.4-11.0)
[2024-12-08 06:36] LABS: AST(SGOT) 16 U/L (<=37); Alanine Aminotransfer ALT/SGPT 22 U/L (<=46); Albumin, Serum 3.7 g/dL (3.5-5.0); Alkaline Phosphatase 100 U/L (40-129); Anion Gap 13 (5-15); BUN 9 mg/dL (4-19); BUN/Creat Ratio 11.0 RATIO (10-20); Calcium,Total 8.8 mg/dL (7.6-11.0); Carbon Dioxide 17.4 mmol/L (21.0-32.0); Chloride 106 mmol/L (98-108); Estimated Creatinine Clearance 240.11 ml/min (50-250); Globulin 3.3 g/dL (2.2-4.2); Glucose 135 mg/dL (70-99); Lipase 260 U/L (13-75); Potassium 3.6 mmol/L (3.3-5.1)
[2024-12-08 07:16] VITALS: BP 145/84; PULSE 108; RESP 18; TEMP 37; O2SAT 97
[2024-12-08 08:00] VITALS: BP 160/71; PULSE 95; RESP 18; TEMP 37; O2SAT 98
[2024-12-08 09:00] VITALS: BP 160/71; PULSE 95; RESP 18; TEMP 37; O2SAT 98
== END 2024-12-08 09:00 | disposition home or self-care (01) ==
PROVIDERS: Emergency Provider Emergency Medicine; Visit Provider Emergency Medicine
DX: R11.0 Nausea (principal); K85.90 Acute pancreatitis without necrosis or infection, unspecified; R19.7 Diarrhea, unspecified; F17.290 Nicotine dependence, other tobacco product, uncomplicated; R10.9 Unspecified abdominal pain
CPT/HCPCS: 74177; 80053; 83690; 85025; 87493; 87506; 96361; 96374; 99282; Q9967; A4216; J2405

== ENCOUNTER → 2024-12-18 | Outpatient (CLI) | payer MEDICAID, SELFPAY ==
[2024-12-18 13:24] LABS: Hematocrit 42.2 % (40-54); Hemoglobin 14.2 g/dL (13.0-16.5); Immature Granulocytes Count 0.040 X10^3/uL (0.0-0.0); Mean Corp Hgb Conc 33.6 g/dL (32-36); Mean Corpuscular Volume 85.4 fL (80-94); Mean Platelet Vol. 11.6 fl (6.2-12.0); NRBC Flagged by Analyzer 0 % (0-5); Platelet Count 259 K/mm3 (150-450); RBC Distribution Width CV 13.1 % (11.6-14.6); RBC Distribution Width SD 40.1 fl (35.1-43.9); Red Blood Count 4.94 M/mm3 (4.6-6.2); White Blood Count 9.8 K/mm3 (4.4-11.0)
[2024-12-18 13:50] LABS: AST(SGOT) 21 U/L (<=37); Alanine Aminotransfer ALT/SGPT 16 U/L (<=46); Albumin, Serum 4.0 g/dL (3.5-5.0); Alkaline Phosphatase 84 U/L (40-129); Amylase 44 U/L (28-100); Anion Gap 12 (5-15); BUN 13 mg/dL (4-19); BUN/Creat Ratio 14.1 RATIO (10-20); Calcium,Total 9.1 mg/dL (7.6-11.0); Carbon Dioxide 22.5 mmol/L (21.0-32.0); Chloride 104 mmol/L (98-108); Globulin 3.2 g/dL (2.2-4.2); Glucose 97 mg/dL (70-99); Lipase 29 U/L (13-75); Potassium 4.0 mmol/L (3.3-5.1)
== END | disposition home or self-care (01) ==
LOC: VSLAB 09:08
DX: K85.90 Acute pancreatitis without necrosis or infection, unspecified (principal)
CPT/HCPCS: 36415; 80053; 82150; 83690; 85025

== ENCOUNTER → 2025-02-26 | Outpatient (CLI) | payer MEDICAID, SELFPAY ==
[2025-02-26 12:19] LABS: Hematocrit 43.3 % (40-54); Hemoglobin 14.7 g/dL (13.0-16.5); Immature Granulocytes Count 0.030 X10^3/uL (0.0-0.0); Mean Corp Hgb Conc 33.9 g/dL (32-36); Mean Corpuscular Volume 84.4 fL (80-94); Mean Platelet Vol. 10.5 fl (6.2-12.0); NRBC Flagged by Analyzer 0 % (0-5); Platelet Count 271 K/mm3 (150-450); RBC Distribution Width CV 13.5 % (11.6-14.6); RBC Distribution Width SD 42.0 fl (35.1-43.9); Red Blood Count 5.13 M/mm3 (4.6-6.2); White Blood Count 8.3 K/mm3 (4.4-11.0)
[2025-02-26 13:16] LABS: PSA,Total- Diagnostic 0.54 ng/mL (0.00-4.00); Vitamin B12 512 pg/mL (180-914); Vitamin D,25 Hydroxy 18.8 ng/mL (30-100)
[2025-03-02 13:07] LABS: Testosterone, % Free 2.66 % (1.50-4.20); Testosterone, Free 7.10 ng/dL (5.00-21.00)
== END | disposition home or self-care (01) ==
LOC: VSLAB 09:30
PROVIDERS: Visit Provider Nurse Practitioner Family
DX: E29.1 Testicular hypofunction (principal); G47.33 Obstructive sleep apnea (adult) (pediatric)
CPT/HCPCS: 36415; 82306; 82607; 83002; 83036; 84153; 84402; 84403; 84443; 85025; 86617

== ENCOUNTER → 2025-03-25 | Outpatient (CLI) | payer MEDICAID, SELFPAY ==
[2025-03-25 17:11] LABS: Amylase 36 U/L (28-100); Lipase 18 U/L (13-75)
== END | disposition home or self-care (01) ==
LOC: LAB.FUTURE 11:38 → VSLAB 11:39
PROVIDERS: Referring Provider Nurse Practitioner Family; Visit Provider Nurse Practitioner Family
DX: E29.1 Testicular hypofunction (principal)
CPT/HCPCS: 36415; 82150; 83690